=== PATIENT | female | born 1985 | race Caucasian/White ===

== ENCOUNTER → 2019-05-29 | Outpatient (CLI) | payer SELFPAY ==
[2019-05-29 10:05] VITALS: BMI 30.4
--- NOTE | 2019-05-29 16:12 | US_ITS ---
STUDY: SECOND AND THIRD TRIMESTER OBSTETRICAL ULTRASOUND REASON FOR EXAM: Female, 33 years old growth. Suspected trisomy 13. Suspected trisomy 13. No anomalies. LMP: October 11, 2018. TECHNIQUE: Transabdominal TECHNICAL QUALITY: Adequate. PRIOR ULTRASOUND: None. FINDINGS: There is a single intrauterine fetus. The fetus is in a cephalic presentation. There is demonstrated cardiac activity with a heart rate of 134 bpm. There is a normal amniotic fluid volume. The largest pocket of amniotic fluid measures 3.42 cm. The SESAR is 11.7 cm. The placenta is fundal and posterior and not low lying There are Grade 1 placental changes. The cervix measures 3.7 cm in length. The adnexal regions are not visualized. BIOMETRY: BPD: 9.9 cm: 40 weeks, 5 days HC: 36.81 cm: Out of range AC: 28.17 cm: 32 weeks, 2 days FL: 6.3 cm: 32 weeks, 5 days CI: 86 FL/BPD: 64 FL/HC: FL/AC: 22 HC/AC: 1.31 age by current US: 35 weeks, 2 days. YOGESH by current US: July 01, 2019. Estimated weight: 2349 grams, +/- 343 grams, 79 %. Age by LMP: 32 weeks, 6 days. YOGESH by LMP: July 18, 2019. Evaluation of anomaly was not performed. Question two-vessel cord.. US/OB Limited With Biometrics IMPRESSION: 1. Live single intrauterine at 35 weeks, 2 days. YOGESH is July 04, 2009. 2. EFW of 2349 g. 3. SESAR of 11.7 cm. 4. Fundal and posterior grade 1 placenta. 5. Breech presentation. 6. Question two-vessel cord. Electronically Signed: Cole De La Rosa DO at 17:42 EST Tel [phone], Service support ,
== END | disposition home or self-care (01) ==
PROVIDERS: Referring Provider Obstetrics & Gynecology; Visit Provider Obstetrics & Gynecology
DX: O09.90 Supervision of high risk pregnancy, unspecified, unspecified trimester (principal); O35.9XX0 Maternal care for (suspected) fetal abnormality and damage, unspecified, not applicable or unspecified; Z3A.00 Weeks of gestation of pregnancy not specified
CPT/HCPCS: 76816